=== PATIENT | female | born 1940 | race Native Hawaiian/Other Pacific Islander ===

== ENCOUNTER 2017-02-11 10:08 | Emergency (ER) | payer OTHER ==
[~2017-02-11] VITALS: Ht 165.1 cm; Wt 81.8 kg
[2017-02-11 10:11] VITALS: BP 154/74
[2017-02-11] MEDS ORDERED: LOSA25TA21 PO (10:19)
[2017-02-11] MEDS ORDERED: METF500T4 PO (10:19)
[2017-02-11 10:35] LABS: APPEARANCE,URINE CLEAR (CLEAR); GLUCOSE, URINE (UA) NEGATIVE (NEGATIVE); KETONES,URINE NEGATIVE (NEGATIVE); LEUKOCYTE ESTERASE ,URINE NEGATIVE (NEGATIVE); OCCULT BLOOD,URINE NEGATIVE (NEGATIVE); PH,URINE 5.5 (5.0-8.0); PROTEIN,URINE NEGATIVE (NEGATIVE)
[2017-02-11 10:39] LABS: ADD UA MICROSCOPIC NO
[2017-02-11] MEDS ORDERED: SULFAMETHOX/TRIMETH DS 800-160 MG/TABLET PO ONE (11:00)
[2017-02-11] MEDS ORDERED: PHENAZOPYRIDINE HCL 100 MG TABLET PO ONE (11:00)
[2017-02-11 12:13] LABS: GLUCOSE,POINT OF CARE 246 MG/DL (70-110)
== END 2017-02-11 11:11 | disposition home or self-care (01) ==
LOC: EMS 10:09
DX: R30.0 Dysuria (principal); E11.9 Type 2 diabetes mellitus without complications; I10 Essential (primary) hypertension; R50.9 Fever, unspecified
CPT/HCPCS: 82962; 99283